=== PATIENT | male | born 1985 | race Caucasian/White ===

== ENCOUNTER 2017-10-28 21:12 | Emergency (ER) | payer OTHER ==
[~2017-10-28] VITALS: Ht 167.6 cm; Wt 81.7 kg
[2017-10-28] MEDS ORDERED: BACTRIM DS TAB1 EACH PO (22:09)
[2017-10-28] MEDS ORDERED: KEFLEX500 M1 PO (22:09)
[2017-10-28 22:24] VITALS: BP 118/67
== END 2017-10-28 22:25 | disposition home or self-care (01) ==
LOC: M.ERS 21:12
DX: L03.114 Cellulitis of left upper limb (principal)